=== PATIENT | male | born 1955 | race Caucasian/White ===

== ENCOUNTER 2017-01-08 13:19 | Emergency (ER) | payer OTHER ==
[2017-01-08 13:47] LABS: VBG BASE EXCESS -5.1 (-2.0-2.0); VBG CARBOXYHEMOGLOBIN 4.6 % T HGB (0.0-6.9); VBG HCO3- 19.2 meq/L (22-28); VBG HEMOGLOBIN 6.6; VBG O2 SATURATION 41.7 (95-100); VBG POTASSIUM 5.4 (3.5-5.1); VBG pH 7.4 (7.32-7.42)
[2017-01-08 13:59] LABS: INR 2.23 (0.8-3.0); PROTIME 24.4 SECONDS (8.83-12.87)
--- NOTE | 2017-01-08 14:06 | XRAY ---
Indication: Ascites. Comparison: None Portable chest underinflated and clear. A few pulmonary and mediastinal calcified nodes. Heart and mediastinal structures within normal limits. Bony thorax intact. Impression: Nonacute underinflated chest with evidence for old granulomatous disease.
[2017-01-08 14:08] LABS: Collection Type VOID
[2017-01-08 14:09] LABS: COMPLETE URINE MICROSCOPIC? YES
[2017-01-08 14:14] LABS: ALBUMIN 2.2 g/dL (3.4-5.0); ANION GAP 17.7 MEQ/L (5-15); BILIRUBIN,TOTAL 2.9 mg/dL (0.2-1.0); Carbon Dioxide 20.7 mEq/L (21-32); Direct Bilirubin 2.1 MG/DL (0.0-0.2); Potassium 5.5 mEq/L (3.5-5.1); Total Protein 6.9 gm/dL (6.4-8.2)
[2017-01-08 14:16] LABS: Mucus SLIGHT /HPF (NEGATIVE)
[2017-01-08 14:17] LABS: Bacteria FEW /HPF (NEGATIVE); Epithelial Cells RARE /HPF (FEW); Hyaline Casts >50 /LPF (0-2); WBC 0-2 /HPF (0-5)
[2017-01-08] MEDS ORDERED: Sodium Chloride 0.9% 1000 ML 1,000 ML IV STA (14:17)
[2017-01-08 14:20] LABS: MAGNESIUM 2.3 mg/dL (1.8-2.4)
[2017-01-08] MEDS ORDERED: Sodium Chloride 0.9% 1000 ML 1,000 ML ONE (14:24)
--- NOTE | 2017-01-08 14:43 | ERPHSYRPT ---
- History of Present Illness Time Seen by Provider: 01/08/17 13:21 Source: patient, EMS Patient Subjective Stated Complaint: PT STATES DR. SWANSON HAS BEEN WORKING HIM UP FOR LIVER FAILURE. PT STATES HIS ABDOMEN HAS BEEN GETTING BIGGER AND MORE DISCOMFORT. Triage Nursing Assessment: PT DUSKY, WARM, DRY. ABDOMEN DISTENDED. BOWEL SOUNDS PRESENT. Physician History: CC: abdominal distention hx: 61 y/o patient with recent diagnosis of ascites. He prior had no known hx of liver disease. His abd CT was worrisome for underlying hepatic malignancy. He chose to go home at that time instead of admission. 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 He denies hx of much alcohol use. He has been followed in the pain clinic for chronic pain syndrome. He reports increasing SARAVIA, abdominal distention resulting in him calling EMS. No fever or chills. He was anemic on prior lab draw. He padmini bleeding. Timing/Duration: week(s) Severity: moderate, severe Allergies/Adverse Reactions: Iodinated Contrast Media - Oral and Allergy (Verified 01/08/17 13:39) Home Medications: Furosemide 40 mg [Lasix 40 MG] 40 mg PO DAILY 01/08/17 [History] Hydrocodone/APAP 10/325 mg [Winters 10/325 MG Tablet] 1 tab PO Q4H PRN PRN 01/08/17 [History] Spironolactone 25 mg [Aldactone 25 MG] 25 mg PO DAILY 01/08/17 [History] Hx Tetanus, Diphtheria Vaccination/Date Given: Yes (UNKOWN) Hx Influenza Vaccination/Date Given: No Hx Pneumococcal Vaccination/Date Given: No Immunizations Up to Date: Yes - Review of Systems Constitutional: Fatigue, Malaise, Weakness, No Fever, No Chills Eyes: No Symptoms Ears, Nose, & Throat: No Symptoms Respiratory: Dyspnea, Dyspnea on Exertion (SARAVIA), No Cough Cardiac: No Chest Pain Abdominal/Gastrointestinal: Abdominal Pain, No Nausea, No Vomiting, No Diarrhea Genitourinary Symptoms: Urinary Retention, No Dysuria Skin: No Rash Neurological: No Headache All Other Systems: Reviewed and Negative - Past Medical History Pertinent Past Medical History: Yes Other Medical History: CHRONIC PAIN. WATER RETENTION - Past Surgical History Past Surgical History: No - Social History Smoking Status: Former smoker Exposure to second hand smoke: No Drug Use: none Patient Lives Alone: No - Nursing Vital Signs Nursing Vital Signs: Initial Vital Signs Temperature 98.7 F Temperature Source Oral Pulse Rate 115 Respiratory Rate 22 Blood Pressure [Right Arm] 128/68 Pain Intensity 7 - Physical Exam General Appearance: alert, obese, other (sallow appearance) Eye Exam: PERRL/EOMI Ears, Nose, Throat Exam: normal ENT inspection Neck Exam: normal inspection, supple Respiratory Exam: diminished breath sounds Cardiovascular Exam: regular rate/rhythm Gastrointestinal/Abdomen Exam: soft, No tenderness, No distention Male Genitalia Exam: normal genitalia Back Exam: normal inspection Extremity Exam: pedal edema (1+) Neurologic Exam: alert, oriented x 3, cooperative, sensation nml, No motor deficits Skin Exam: warm, dry, pale (sallow), No rash SpO2 Interpretation: normal SpO2: 95 Oxygen Delivery: Room Air - Course Nursing assessment & vital signs reviewed: Yes EKG Interpreted by Me: RATE (115), Sinus Tach, NORMAL INTERVALS (QTc 455), Non- specific ST Changes - Radiology Exams cxr X-ray Interpretation: Discussed w/ radiologist, Negative Ordered Tests: Active Orders 24 hr Category Date Time Status Chain Offbearer STAT Care 01/08/17 13:43 Active EKG-ER Only STAT Care 01/08/17 13:24 Active Ratliff [Catheter-[place] Ratliff] STAT Care 01/08/17 13:56 Active IV Insertion STAT Care 01/08/17 13:24 Active IV Insertion-2nd Peripheral STAT Care 01/08/17 14:35 Active NPO (ED) STAT Care 01/08/17 13:24 Active CHEST 1 VIEW (PORTABLE) Stat Exams 01/08/17 13:24 Completed BLOOD CULTURE Stat Lab 01/08/17 13:48 Ordered CBC W DIFF Stat Lab 01/08/17 13:44 Received CMP Stat Lab 01/08/17 13:44 Completed CULTURE,URINE Stat Lab 01/08/17 14:47 Ordered Direct Bilirubin Stat Lab 01/08/17 13:44 Completed LIPASE Stat Lab 01/08/17 13:44 Completed Lactic Acid Urgent Lab 01/08/17 13:47 Completed MAGNESIUM Stat Lab 01/08/17 13:44 Completed NT PRO BNP Stat Lab 01/08/17 13:44 Completed PROTIME WITH INR Stat Lab 01/08/17 13:44 Completed TROPONIN Stat Lab 01/08/17 13:57 Completed UA W/ MICROSCOPIC Stat Lab 01/08/17 14:00 Completed VENOUS BLOOD GAS Urgent Lab 01/08/17 13:44 Completed Medication Summary Generic Name Dose Route Start Last Admin Trade Name Frekrystyna PRN Reason Stop Dose Admin Sodium Chloride 1,000 mls @ 999 mls/hr 01/08/17 14:17 01/08/17 14:24 Sodium Chloride 0.9% 1000 Ml IV 01/08/17 15:17 999 mls/hr .Q1H1M STA Administration Ceftriaxone Sodium/Dextrose 50 mls @ 100 mls/hr 01/08/17 14:47 Rocephin 1 Gm-D5w 50 Ml Bag IV 01/08/17 15:16 STAT ONE Discontinued Medications Generic Name Dose Route Start Last Admin Trade Name Frekrystyna PRN Reason Stop Dose Admin Albumin Human 200 ml 01/08/17 14:49 Alburx 25% 50ml Vial IV 01/08/17 14:50 STAT ONE Sodium Chloride Confirm 01/08/17 14:24 Sodium Chloride 0.9% 1000 Ml Administered 01/08/17 14:25 Dose 1,000 mls @ ud .ROUTE .STK-MED ONE Lab/Rad Data: Laboratory Result Diagrams 01/08/17 13:44 Laboratory Results 01/08/17 01/08/17 01/08/17 Range/Units 14:00 13:57 13:47 INR (0.8-3.0) VBG pH (7.32-7.42) VBG pCO2 at Pat Temp (42-55) mm/Hg VBG pO2 at Pat Temp (25-40) mm/Hg VBG HCO3 (22-28) meq/L VBG O2 Sat (Red) (95-100) VBG Base Excess (-2.0-2.0) VBG Hemoglobin VBG Carboxyhemoglobin (0.0-6.9) % T HGB POC Potassium (3.5-5.1) Sodium (136-145) mEq/L Potassium (3.5-5.1) mEq/L Chloride (98-107) mEq/L Carbon Dioxide (21-32) mEq/L Anion Gap (5-15) MEQ/L BUN (9-20) mg/dL Creatinine (0.55-1.30) mg/dl Estimated GFR ML/MIN Glucose (70-110) MG/DL Lactic Acid 5.4 H (0.4-2.0) Calcium (8.5-10.1) mg/dL Magnesium (1.8-2.4) mg/dL Total Bilirubin (0.2-1.0) mg/dL Direct Bilirubin (0.0-0.2) MG/DL AST (15-37) U/L ALT (12-78) U/L Alkaline Phosphatase (46-116) U/L Ammonia (11-32) MMOL/l Troponin I < 0.017 (0.000-0.056) ng/ml NT-Pro-B Natriuret Pep (0-125) pg/ml Serum Total Protein (6.4-8.2) gm/dL Albumin (3.4-5.0) g/dL Lipase (73-393) U/L Ur Collection Type VOID Urine Color DARK YELLOW (YELLOW) Urine Appearance HAZY (CLEAR) Urine pH 5.0 (5-6) Ur Specific Lula 1.025 (1.005-1.025) Urine Protein TRACE (Negative) Urine Glucose (UA) NEGATIVE (NEGATIVE) mg/dL Urine Ketones TRACE (NEGATIVE) Urine Nitrite NEGATIVE (NEGATIVE) Urine Bilirubin MODERATE (NEGATIVE) Urine Urobilinogen >=8.0 (0-1) mg/dL Urine WBC (Auto) NEGATIVE (NEGATIVE) Urine RBC (Auto) NEGATIVE (0-5) Marcelo/ul Urine Microscopic RBC 0-2 (0-2) /HPF Urine Microscopic WBC 0-2 (0-5) /HPF Ur Epithelial Cells RARE (FEW) /HPF Amorphous Crystals MODERATE (NEGATIVE) /HPF Urine Bacteria FEW (NEGATIVE) /HPF Hyaline Casts >50 (0-2) /LPF Urine Mucus SLIGHT (NEGATIVE) /HPF Specimen Received 01/08/17 1400 01/08/17 01/08/17 01/08/17 Range/Units 13:44 13:44 13:44 INR 2.23 (0.8-3.0) VBG pH 7.40 (7.32-7.42) VBG pCO2 at Pat Temp 31 L (42-55) mm/Hg VBG pO2 at Pat Temp 22 L (25-40) mm/Hg VBG HCO3 19.2 L (22-28) meq/L VBG O2 Sat (Red) 41.7 L (95-100) VBG Base Excess -5.1 L (-2.0-2.0) VBG Hemoglobin 6.6 L* VBG Carboxyhemoglobin 4.6 (0.0-6.9) % T HGB POC Potassium 5.4 H (3.5-5.1) Sodium (136-145) mEq/L Potassium (3.5-5.1) mEq/L Chloride (98-107) mEq/L Carbon Dioxide (21-32) mEq/L Anion Gap (5-15) MEQ/L BUN (9-20) mg/dL Creatinine (0.55-1.30) mg/dl Estimated GFR ML/MIN Glucose (70-110) MG/DL Lactic Acid (0.4-2.0) Calcium (8.5-10.1) mg/dL Magnesium 2.3 (1.8-2.4) mg/dL Total Bilirubin (0.2-1.0) mg/dL Direct Bilirubin (0.0-0.2) MG/DL AST (15-37) U/L ALT (12-78) U/L Alkaline Phosphatase (46-116) U/L Ammonia (11-32) MMOL/l Troponin I (0.000-0.056) ng/ml NT-Pro-B Natriuret Pep 368 H (0-125) pg/ml Serum Total Protein (6.4-8.2) gm/dL Albumin (3.4-5.0) g/dL Lipase (73-393) U/L Ur Collection Type Urine Color (YELLOW) Urine Appearance (CLEAR) Urine pH (5-6) Ur Specific Lula (1.005-1.025) Urine Protein (Negative) Urine Glucose (UA) (NEGATIVE) mg/dL Urine Ketones (NEGATIVE) Urine Nitrite (NEGATIVE) Urine Bilirubin (NEGATIVE) Urine Urobilinogen (0-1) mg/dL Urine WBC (Auto) (NEGATIVE) Urine RBC (Auto) (0-5) Marcelo/ul Urine Microscopic RBC (0-2) /HPF Urine Microscopic WBC (0-5) /HPF Ur Epithelial Cells (FEW) /HPF Amorphous Crystals (NEGATIVE) /HPF Urine Bacteria (NEGATIVE) /HPF Hyaline Casts (0-2) /LPF Urine Mucus (NEGATIVE) /HPF Specimen Received 01/08/17 01/08/17 Range/Units 13:44 13:24 INR (0.8-3.0) VBG pH (7.32-7.42) VBG pCO2 at Pat Temp (42-55) mm/Hg VBG pO2 at Pat Temp (25-40) mm/Hg VBG HCO3 (22-28) meq/L VBG O2 Sat (Red) (95-100) VBG Base Excess (-2.0-2.0) VBG Hemoglobin VBG Carboxyhemoglobin (0.0-6.9) % T HGB POC Potassium (3.5-5.1) Sodium 131 L (136-145) mEq/L Potassium 5.5 H (3.5-5.1) mEq/L Chloride 98 (98-107) mEq/L Carbon Dioxide 20.7 L (21-32) mEq/L Anion Gap 17.7 H (5-15) MEQ/L BUN 47 H (9-20) mg/dL Creatinine 2.04 H (0.55-1.30) mg/dl Estimated GFR 36 ML/MIN Glucose 126 H (70-110) MG/DL Lactic Acid (0.4-2.0) Calcium 8.3 L (8.5-10.1) mg/dL Magnesium (1.8-2.4) mg/dL Total Bilirubin 2.9 H (0.2-1.0) mg/dL Direct Bilirubin 2.10 H (0.0-0.2) MG/DL AST 465 H (15-37) U/L ALT 291 H (12-78) U/L Alkaline Phosphatase 226 H (46-116) U/L Ammonia 26 (11-32) MMOL/l Troponin I (0.000-0.056) ng/ml NT-Pro-B Natriuret Pep (0-125) pg/ml Serum Total Protein 6.9 (6.4-8.2) gm/dL Albumin 2.2 L (3.4-5.0) g/dL Lipase 178 (73-393) U/L Ur Collection Type Urine Color (YELLOW) Urine Appearance (CLEAR) Urine pH (5-6) Ur Specific Lula (1.005-1.025) Urine Protein (Negative) Urine Glucose (UA) (NEGATIVE) mg/dL Urine Ketones (NEGATIVE) Urine Nitrite (NEGATIVE) Urine Bilirubin (NEGATIVE) Urine Urobilinogen (0-1) mg/dL Urine WBC (Auto) (NEGATIVE) Urine RBC (Auto) (0-5) Marcelo/ul Urine Microscopic RBC (0-2) /HPF Urine Microscopic WBC (0-5) /HPF Ur Epithelial Cells (FEW) /HPF Amorphous Crystals (NEGATIVE) /HPF Urine Bacteria (NEGATIVE) /HPF Hyaline Casts (0-2) /LPF Urine Mucus (NEGATIVE) /HPF Specimen Received - Progress Progress Note: 01/08/17 15:[address] Germaine Swanson who advised transfer to hepatology. Pt agreed. Called one call and spok eto Dr Kenia MCKEON and Dr Nelson Reeves hospitalist who accept pt in transfer to [facility]. Advised 50grams albumin and rocephin. Elevated lactic due to acute kidney injury and does not appear to have phong sepsis. Will cover for spontaneous bacterial peritonitis. Counseled pt/family regarding: lab results, diagnosis, need for follow-up, rad results - Departure Time of Disposition: 15:15 Departure Disposition: Transfer Clinical Impression: Acute liver failure, Cirrhosis, Acute kidney injury, Spontaneous bacterial peritonitis, Anemia Condition: Serious Critical Care Time: Yes Critical Care Time(excluding separately billable procedures): 30-74 minutes Referrals: DIMAS SWANSON [Primary Care Provider] -
[2017-01-08] MEDS ORDERED: ROCEPHIN 1 Gm-D5w 50 ml Bag** 50 ML IV ONE ×2 (14:47→15:07)
[2017-01-08] MEDS ORDERED: AlbuRx 25% 50ML VIAL IV ONE (14:49)
[2017-01-08 17:26] VITALS: BP 126/83
[2017-01-08 18:39] VITALS: PULSE 100; O2SAT 98
== END 2017-01-08 18:35 | disposition short-term general hospital (02) ==
LOC: ED 13:19
DX: K72.00 Acute and subacute hepatic failure without coma (principal); K74.60 Unspecified cirrhosis of liver; N17.9 Acute kidney failure, unspecified; K65.2 Spontaneous bacterial peritonitis; D64.9 Anemia, unspecified; Z79.899 Other long term (current) drug therapy
CPT/HCPCS: 36000; 36415; 51702; 71010; 80053; 81000; 82140; 82248; 82805; 83605; 83690; 83735; 83880; 84484; 85025; 85610; 86850; 86900; 86901; 87086; 93005; 93041; 96360; 96365; 96366; 99285; J0696; P9047